=== PATIENT | male | born 1975 | race Caucasian/White ===

== ENCOUNTER 2020-09-27 01:40 | Emergency (ER) | payer SELFPAY ==
--- NOTE | 2020-09-27 02:05 | ED Physician Documentation ---
PD HPI ABD PAIN - Stated complaint Stated Complaint: ADB PX, NAUSEA, VOMITING - Chief complaint Chief Complaint: Abd Pain - History obtained from History obtained from: Patient - History of Present Illness Timing - onset: How many hours ago (3) Timing - duration: Hours Timing - details: Abrupt onset, Constant, Waxing and waning Pain level now: 10 Quality: Pain Location: RUQ, Epigastric Improved by: Other (no ameliorating factors) Worsened by: Other (no exacerbating factors) Associated symptoms: Nausea, Vomiting. No: Fever, Diarrhea, Constipation Similar symptoms before: No diagnosis Recently seen: Not recently seen - Additional information Additional information: c/o sudden onset RUQ and epigastric pain. 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 He says he has had similar pain before but self-limited episodes and thus has not been evaluated for this before. Review of Systems Constitutional: denies: Fever, Chills, Sweats Cardiac: reports: Reviewed and negative Respiratory: reports: Reviewed and negative GI: reports: Abdominal Pain, Nausea, Vomiting. denies: Constipation, Diarrhea : denies: Dysuria, Frequency Skin: reports: Reviewed and negative Musculoskeletal: reports: Reviewed and negative PD PAST MEDICAL HISTORY - Past Medical History Past Medical History: Yes Cardiovascular: Hypertension - Past Surgical History Past Surgical History: No - Present Medications Home Medications: Ambulatory Orders Medication Instructions Recorded Confirmed Lisinopril [Prinivil] 5 mg PO DAILY 09/27/20 09/27/20 Ondansetron Odt [Zofran] 4 mg TL Q6H PRN #10 tablet 09/27/20 Oxycodone HCl/Acetaminophen 1 - 2 each PO Q6H PRN #14 tablet 09/27/20 [Percocet 5-325 mg Tablet] - Allergies Allergies/Adverse Reactions: Allergies Allergy/AdvReac Type Severity Reaction Status Date / Time No Known Drug Allergies Allergy Verified 09/27/20 01:51 - Living Situation Living Arrangement: reports: At home - Social History Does the pt drink ETOH?: Yes ETOH Use: Other (occasional) PD ED PE NORMAL - Vitals Vital signs reviewed: Yes - General General: Alert and oriented X 3, Well developed/nourished, Other (obvious painful distress) - Cardiac Cardiac: RRR, No murmur - Respiratory Respiratory: No respiratory distress, Clear bilaterally - Abdomen Abdomen: Soft, Non tender, Non distended - Back Back: No CVA TTP Results - Vitals Vitals: Vital Signs - 24 hr 09/27/20 09/27/20 09/27/20 01:40 02:15 02:31 Temperature 36.4 C L Heart Rate 65 67 74 Respiratory 20 24 24 Rate Blood Pressure 152/87 H 147/99 H 141/90 H O2 Saturation 100 100 100 09/27/20 09/27/20 09/27/20 02:48 04:04 05:14 Temperature 36.2 C L Heart Rate 62 66 61 Respiratory 17 14 14 Rate Blood Pressure 141/90 H 112/63 120/72 O2 Saturation 100 98 98 Oxygen O2 Source Room air - Labs Labs: Laboratory Tests 09/27/20 09/27/20 09/27/20 02:00 02:08 02:08 WBC 6.8 RBC 4.65 L Hgb 14.5 Hct 40.6 L MCV 87.3 MCH 31.2 H MCHC 35.7 RDW 12.3 Plt Count 176 MPV 10.1 Neut # (Auto) 4.3 Lymph # (Auto) 1.8 [place] # (Auto) 0.4 Eos # (Auto) 0.2 Baso # (Auto) 0.0 Absolute Nucleated RBC 0.00 Nucleated RBC % 0.0 Sodium 135 Potassium 3.6 Chloride 98 L Carbon Dioxide 25 Anion Gap 12.0 BUN 22 H Creatinine 1.0 Estimated GFR (MDRD) 82 L Glucose 197 H Calcium 9.3 Total Bilirubin 1.0 AST 34 ALT 81 H Alkaline Phosphatase 73 Total Protein 7.6 Albumin 4.4 Globulin 3.2 Albumin/Globulin Ratio 1.4 Lipase 33 Urine Color YELLOW Urine Clarity CLEAR Urine pH 6.5 Ur Specific [place] >=1.030 H Urine Protein >=300 H Urine Glucose (UA) NEGATIVE Urine Ketones NEGATIVE Urine Occult Blood MODERATE H Urine Nitrite NEGATIVE Urine Bilirubin NEGATIVE Urine Urobilinogen 0.2 (NORMAL) Ur Leukocyte Esterase NEGATIVE Urine RBC 6-10 H Urine WBC 0-3 Ur Squamous Epith Cells NONE SEEN Urine Bacteria None Seen Ur Microscopic Review INDICATED Urine Culture Comments NOT INDICATED - Rads (name of study) RUQ US Radiology: Prelim report reviewed, See rad report PD MEDICAL DECISION MAKING - ED course Complexity details: reviewed results, re-evaluated patient, considered differential, d/w patient ED course: patient had no improvement with IV toradol but pain resolved with IV dilaudid 1mg x single dose. He also received IV fluids (one liter NS) and IV zofran. H+P s/w biliary colic and US demonstrates multiple gallstones. he is afebrile and has normal LFTs. US findings do not suggest cholecystitis (normal common bile duct, no wall thickening or pericholecystic fluid). patient is appropriate for d/c with outpatient follow-up with surgery to discuss surgical option. He is encouraged to return to the emergency department if worse or if he develops concerning new signs/symptoms such as fever. Departure - Departure Disposition: Home, Self Care Clinical Impression: Biliary colic Condition: Good Instructions: ED Gallstone W Biliary Colic Follow-Up: Kayley Wilson MD [Provider Admit Priv/Credential] - Prescriptions: Oxycodone HCl/Acetaminophen [Percocet 5-325 mg Tablet] 1 - 2 each PO Q6H PRN #14 tablet PRN Reason: pain Ondansetron Odt [Zofran] 4 mg TL Q6H PRN #10 tablet PRN Reason: Nausea / Vomiting Discharge Date/Time: 09/27/20 05:23
[2020-09-27 02:13] LABS: BILIRUBIN,URINE NEGATIVE (NEGATIVE); GLUCOSE, URINE (UA) NEGATIVE (NEGATIVE); KETONES,URINE (UA) NEGATIVE (NEGATIVE); LEUKOCYTE ESTERASE, URINE NEGATIVE (NEGATIVE); NITRITE,URINE NEGATIVE (NEGATIVE); OCCULT BLOOD,URINE MODERATE (NEGATIVE); PH,URINE 6.5 PH (5.0-7.5); PROTEIN,URINE >=300 mg/dL (NEGATIVE); UROBILINOGEN,URINE 0.2 (NORMAL) E.U./dL (NORMAL)
[2020-09-27 02:14] LABS: BASOPHILS % (AUTO) 0.6 %; EOSINOPHILS # (AUTO) 0.2 10^3/uL (0.0-0.7); EOSINOPHILS % (AUTO) 2.2 %; HCT - HEMATOCRIT 40.6 % (42.0-52.0); HGB - HEMOGLOBIN 14.5 g/dL (14.0-18.0); LYMPHOCYTES # (AUTO) 1.8 10^3/uL (1.5-3.5); LYMPHOCYTES % (AUTO) 27.2 %; MEAN CORPUSCULAR HEMOGLOBIN 31.2 pg (27.0-31.0); MEAN CORPUSCULAR HGB CONC 35.7 g/dL (32.0-36.0); MEAN CORPUSCULAR VOLUME 87.3 fL (80.0-94.0); MEAN PLATELET VOLUME 10.1 fL (7.4-11.4); MONOCYTES # (AUTO) 0.4 10^3/uL (0.0-1.0); MONOCYTES % (AUTO) 5.8 %; NEUTROPHILS # (AUTO) 4.3 10^3/uL (1.5-6.6); NEUTROPHILS % (AUTO) 63.9 %; PLT - PLATELET COUNT 176 10^3/uL (130-450); RED BLOOD COUNT 4.65 10^6/uL (4.70-6.10); RED CELL DISTRIBUTION WIDTH 12.3 % (12.0-15.0); WHITE BLOOD COUNT 6.8 x10^3/uL (4.8-10.8)
[2020-09-27 02:14] LABS: CLARITY,URINE CLEAR (CLEAR)
[2020-09-27 02:19] LABS: BACTERIA,URINE None Seen /HPF (None Seen); SQUAMOUS EPITHELIAL CELL,UR NONE SEEN (<= Few); WBC,URINE 0-3 /HPF (0-3)
[2020-09-27] MEDS ORDERED: SODIUM CHLORIDE 0.9% 1,000 ML IV STA (02:21)
[2020-09-27] MEDS ORDERED: ONDANSETRON 4 MG/2 ML VIAL IVP STA (02:21)
[2020-09-27] MEDS ORDERED: KETOROLAC 30 MG/ML VIAL IVP STA (02:22)
[2020-09-27 02:25] LABS: ALBUMIN 4.4 g/dL (3.2-5.5); ALBUMIN/GLOBULIN RATIO 1.4 (1.0-2.2); CALCIUM 9.3 mg/dL (8.5-10.3); POTASSIUM 3.6 mmol/L (3.5-5.0); TOTAL PROTEIN 7.6 g/dL (6.7-8.2)
[2020-09-27] MEDS ORDERED: HYDROmorphone 1 MG/ML CARPUJECT IVP STA (02:49)
[2020-09-27 05:14] VITALS: BP 120/72
--- NOTE | 2020-09-27 09:15 | Ultrasound Report ---
PROCEDURE: Abdomen Limited INDICATIONS: Abdominal pain TECHNIQUE: Real-time focused scanning was performed of the abdomen, with image documentation. COMPARISON: None FINDINGS: Increased hepatic parenchymal echogenicity indicative of diffuse hepatic steatosis, at [address] moderate in severity. No focal hepatic mass. No intrahepatic or extrahepatic biliary ductal dilata tion. Multiple gallstones measuring at least 1 cm. No gallbladder wall thickening or pericholecystic fluid. No sonographic Wright's sign was elicited (although patient was medicated prior to the study). Visualized portions of the pancreas are within normal limits. The right kidney is unremarkable. IMPRESSION: Cholelithiasis and hepatic steatosis. No significant change from preliminary report. Reviewed by: Adrian Fischer MD on 09/27/2020 9:14 AM PDT Approved by: Adrian Fischer MD on 09/27/2020 9:14 AM PDT Station ID: [id number]
== END 2020-09-27 05:23 | disposition home or self-care (01) ==
LOC: ED 01:40
DX: K80.20 Calculus of gallbladder without cholecystitis without obstruction (principal); K76.0 Fatty (change of) liver, not elsewhere classified; I10 Essential (primary) hypertension
CPT/HCPCS: 36415; 76705; 80053; 81001; 83690; 85025; 93005; 96361; 96374; 96375; 99284; J1170; 81003; 87086